=== PATIENT | female | born 1975 | race Caucasian/White ===

== ENCOUNTER 2017-04-11 03:59 | Emergency (ER) | payer OTHER ==
[~2017-04-11] VITALS: Ht 165.1 cm; Wt 71.6 kg
[2017-04-11] MEDS ORDERED: VALIUM2 MG PO (06:08)
[2017-04-11 06:48] VITALS: BP 138/109
== END 2017-04-11 06:49 | disposition home or self-care (01) ==
LOC: EME 03:59
DX: F33.1 Major depressive disorder, recurrent, moderate (principal); G47.00 Insomnia, unspecified; F41.1 Generalized anxiety disorder; Z87.891 Personal history of nicotine dependence
CPT/HCPCS: 90839; 99281; 99284

== ENCOUNTER 2017-06-19 08:36 | Emergency (ER) | payer OTHER ==
[~2017-06-19] VITALS: Ht 165.1 cm; Wt 73.7 kg
[~2017-06-19 08:36] MED LIST: VALIUM2 MG PO
[2017-06-19 08:41] VITALS: BP 144/72
== END 2017-06-19 10:03 | disposition home or self-care (01) ==
LOC: EME 08:36
DX: M25.561 Pain in right knee (principal); Z88.0 Allergy status to penicillin; Z88.5 Allergy status to narcotic agent
CPT/HCPCS: 73564; 99281; 99284

== ENCOUNTER 2018-03-22 05:40 | Emergency (ER) | payer OTHER ==
[~2018-03-22] VITALS: Ht 165.1 cm; Wt 73.8 kg
[2018-03-22 06:41] LABS: BASOPHIL (%) 0.8 % (0-1); BASOPHIL COUNT 0.1 K/uL (0-0.1); EOSINOPHIL (%) 2.8 % (0-5); EOSINOPHIL COUNT 0.2 K/uL (0-0.3); HEMATOCRIT 38.3 % (36.0-46.0); HEMOGLOBIN 12.6 G/DL (11.9-15.5); IMMATURE GRANULOCYTE (%) 0.4 % (0.0-0.7); LYMPHOCYTE (%) 19.8 % (15-42); LYMPHOCYTE COUNT 1.4 K/uL (1.0-2.8); MCH 27.6 PG (29.0-34.0); MCHC 32.9 G/DL (30.0-36.0); MONOCYTE (%) 5.8 % (3-12); MONOCYTE COUNT 0.4 K/uL (0-0.8); NEUTROPHIL (%) 70.4 % (45-76); NEUTROPHIL COUNT 5.1 K/uL (1.8-6.4); PLATELET COUNT 344 K/uL (156-360); RBC DIS.WIDTH-CV 14.5 % (11.8-14.6); RBC DIS.WIDTH-SD 44.5 % (39-53); RED BLOOD COUNT 4.56 M/uL (3.80-5.20); WHITE BLOOD COUNT 7.2 K/uL (4.1-10.2)
[2018-03-22 06:46] LABS: INTER. NORMALIZED RATIO 1.3
[2018-03-22 06:48] LABS: D-DIMER ELISA < 150.00 ng/mLDDU (<230); PTT 32.7 SEC (25-37)
[2018-03-22 07:04] LABS: CHLORIDE 108 MEQ/L (99-109); SODIUM 139 MEQ/L (136-147)
[2018-03-22 07:09] LABS: CREATININE 0.7 MG/DL (0.6-1.3); GFR ESTIMATE (CALCULATED) > 59 mL/min/; GLUCOSE 99 mg/dL (70-99); UREA NITROGEN (BUN) 10 mg/dL (9-23)
[2018-03-22 07:14] LABS: TROP-I INTERPRETATION NEGATIVE; TROPONIN-I < 0.01 ng/mL (0.0-0.30)
[2018-03-22 08:08] VITALS: BP 127/77
== END 2018-03-22 08:13 | disposition home or self-care (01) ==
LOC: EME 05:40
PROVIDERS: Emergency Medicine
DX: R06.00 Dyspnea, unspecified (principal); F41.9 Anxiety disorder, unspecified; F32.9 Major depressive disorder, single episode, unspecified; Z88.5 Allergy status to narcotic agent; Z88.0 Allergy status to penicillin
CPT/HCPCS: 71045; 80048; 83880; 84484; 85025; 85379; 85610; 85730; 93005; 99281; 99284